=== PATIENT | male | born 1965 | race Caucasian/White ===

== ENCOUNTER → 2020-11-11 | Outpatient (CLI) | payer BC ==
[~2020-11-11] MED LIST: ASPIRIN CHEWABL81 MG PO; BRILINTA90 MG PO; COREG 3.125M3.125 MG PO; FLEXERIL 10 MG10 MG PO; FLOMAX 0.4 MG0.4 MG PO; HYDROCHLOROTHIA25 MG PO; LIPITOR TAB 2020 MG PO; METFORMIN HCL500 M2 PO; NORVASC 5 MG TAB5 MG PO; PRAVACHOL20 MG PO; VITAMIN D250000 UNIT PO; ZESTRIL 40 MG T40 MG PO
== END ==
LOC: KOH-I 11:13
DX: M79.671 Pain in right foot (principal)
CPT/HCPCS: 73630

== ENCOUNTER → 2020-12-16 | Outpatient (CLI) | payer BC | LOC: KOH-I 15:00 | DX: M25.571 Pain in right ankle and joints of right foot (principal); M79.671 Pain in right foot | CPT/HCPCS: 73610; 73630 ==

== ENCOUNTER → 2021-01-30 | Outpatient (CLI) | payer BC | LOC: KOH-I 09:55 | DX: M25.571 Pain in right ankle and joints of right foot (principal); M95.8 Other specified acquired deformities of musculoskeletal system | CPT/HCPCS: 73718 ==